=== PATIENT | female | born 1945 | race Caucasian/White ===

== ENCOUNTER 2021-11-13 11:22 | Emergency (ER) | payer MEDICARE, OTHER ==
[~2021-11-13 11:22] MED LIST: ACID CONTROLLER20 MG GT; CEFUROXIME500 MG PO; FLAGYL500 MG PO; HYDROCODON-ACET15 ML GT; IPRAT-ALBUT 0.5-3 ML INH; KLONOPIN0.5 MG GT; LEVAQUIN TAB 5500 MG GT; LEXAPRO20 MG GT; MUCUS RELIEF600 MG GT; TRAZODONE HCL100 MG GT; TWOCAL HN PO
[2021-11-13 12:28] LABS: HEMOGLOBIN 14.1 gm/dl (12.3-15.3); RED BLOOD COUNT 4.81 M/UL (4.00-5.10); WHITE BLOOD COUNT 10.8 K/UL (4.5-11.0)
[2021-11-13 12:50] LABS: BUN/CREATININE RATIO 40 (0-10)
[2021-11-13] MEDS ORDERED: IPRAT-ALBUT 0.5-3 ML INH (17:04)
[2021-11-13] MEDS ORDERED: PREDNISONE20 MG PO (17:04)
== END 2021-11-13 17:54 | disposition home or self-care (01) ==
LOC: ER1 11:22
PROVIDERS: Family Medicine
DX: J96.01 Acute respiratory failure with hypoxia (principal); G89.29 Other chronic pain; F11.20 Opioid dependence, uncomplicated; Z20.822 Contact with and (suspected) exposure to COVID-19; Z51.5 Encounter for palliative care; Z85.818 Personal history of malignant neoplasm of other sites of lip, oral cavity, and pharynx; Z88.0 Allergy status to penicillin; Z88.2 Allergy status to sulfonamides
CPT/HCPCS: 36600; 71045; 80053; 82550; 82553; 82803; 83605; 83874; 83880; 84484; 85025; 85610; 87040; 93005; 94664; 96374; 96375; 99285; J1335; J2930; Q9967; U0002